=== PATIENT | female | born 2000 | race Caucasian/White ===

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

== ENCOUNTER 2020-06-01 13:20 | Emergency (ER) | payer OTHER ==
[2020-06-01 14:40] LABS: HEMOGLOBIN 14.4 gm/dl (12.3-15.3); RED BLOOD COUNT 4.53 M/UL (4.00-5.10); WHITE BLOOD COUNT 5.7 K/UL (4.5-11.0)
[2020-06-01 15:07] LABS: BUN/CREATININE RATIO 22 (0-10)
[2020-06-01] MEDS ORDERED: ZOFRAN ODT 4 MG4 MG PO (17:07)
[2020-06-01] MEDS ORDERED: MIRALAX 119 GR119 GM PO (17:07)
== END 2020-06-01 17:30 | disposition home or self-care (01) ==
LOC: ER1 13:20
PROVIDERS: Family Medicine
DX: K59.00 Constipation, unspecified (principal); Z88.0 Allergy status to penicillin
CPT/HCPCS: 80053; 81001; 83605; 83690; 84703; 85025; 96365; 96375; 99284; J2405; Q9967

== ENCOUNTER 2020-11-02 18:05 | Emergency (ER) | payer OTHER ==
[~2020-11-02 18:05] MED LIST: MIRALAX 119 GR119 GM PO; ZOFRAN ODT 4 MG4 MG PO
== END 2020-11-02 20:00 | disposition left against medical advice (07) ==
LOC: ER1 18:05
DX: Z53.21 Procedure and treatment not carried out due to patient leaving prior to being seen by health care provider (principal)